=== PATIENT | female | born 1970 | race African-American/Black ===

== ENCOUNTER 2016-10-30 00:18 | Emergency (ER) | payer BC ==
[2016-10-30] MEDS ORDERED: OXYCODONE-ACETAMINOPHEN 5-325 MG TABLET PO ONE (03:16)
--- NOTE | 2016-10-30 03:51 | ER Document Report ---
HPI - HPI Patient complains to provider of: left shoulder pain Pain Level: 5 Context: Patient is a 46-year-old female comes emergency department for chief complaint of left shoulder and arm pain. 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 She states now she can barely lift her shoulder without severe sharp pain. She denies numbness, she denies neck pain, she denies chest pain, she denies any other symptoms. She takes no daily medications. She denies any medical history. Past Medical History - General Information source: Patient - Social History Smoking Status: Never Smoker Frequency of alcohol use: None Drug Abuse: None Lives with: Family Family History: Reviewed & Not Pertinent - Medical History Medical History: Negative Renal/ Medical History: Denies: Hx Peritoneal Dialysis Surgical Hx: Negative - Immunizations Immunizations up to date: Yes Hx Diphtheria, Pertussis, Tetanus Vaccination: Yes Vertical Provider Document - CONSTITUTIONAL General Appearance: WD/WN, Mild Distress - patient appears uncomfortable, she has noteable pain with movement of the left arm - INFECTION CONTROL TRAVEL OUTSIDE OF THE [place] IN LAST 30 DAYS: No - HEENT HEENT: Atraumatic, Normocephalic - NECK Neck: Normal Inspection - RESPIRATORY Respiratory: Breath Sounds Normal, No Respiratory Distress O2 Sat by Pulse Oximetry: 98 - CARDIOVASCULAR Cardiovascular: Regular Rate, Regular Rhythm - GI/ABDOMEN Gastrointestinal: Abdomen Soft, Abdomen Non-Tender - BACK Back: Normal Inspection - MUSCULOSKELETAL/EXTREMETIES Musculoskeletal/Extremeties: Tender - Patient with tenderness over the posterior left shoulder, over the humeral head, over the AC joint, area is not hot or erythematous, patient has almost no ability to perform abduction of the arm, she has good commission clerk, normal distal pulses and sensation, normal exam otherwise Course - Re-evaluation Re-evalutation: X-ray unremarkable. Exam is consistent with injury and strain of the left shoulder with probable rotator cuff injury and impingement from her nursing occupation. Patient given swelling, pain medication, anti-inflammatory already being taken at home. Patient given orthopedic referral instructions, to return precautions, patient states understanding and agreement. Patient much more comfortable on discharge. - Vital Signs Vital signs: Temp Pulse Resp BP Pulse Ox 97.4 F 81 18 141/75 H 98 10/30/16 00:36 10/30/16 00:36 10/30/16 00:36 10/30/16 00:36 10/30/16 00:36 - Diagnostic Test Radiology reviewed: Image reviewed, Reports reviewed Procedures - Immobilization left arm Pre-Proc Neuro Vasc Exam: Normal Immobilizer type: Sling Performed by: PCT Post-Proc Neuro Vasc Exam: Normal Alignment checked and good: Yes Discharge - Discharge Clinical Impression: Left shoulder pain Qualifiers: Chronicity: acute Qualified Code(s): M25.512 - Pain in left shoulder Condition: Stable Disposition: HOME, SELF-CARE Additional Instructions: The shoulder x-ray is normal, however this is a limited study. Use the sling, take arm out regularly to perform range of motions as we discussed. Apply heat to back of neck and upper back, apply ice directly over the shoulder area in the upper arm, take your naproxen (i.e. 375-500 mg twice daily with food), take the pain medication with the nausea medication if needed , follow up closely with Orthopedics for additional workup and management. Return to the ED for any concerning or worsening symptoms. Prescriptions: Ondansetron [Zofran Odt 4 mg Tablet] 1 - 2 tab PO Q4H PRN #20 tab.rapdis PRN Reason: For Nausea/Vomiting Oxycodone HCl/Acetaminophen [Percocet 5-325 mg Tablet] 1 - 2 tab PO Q4H PRN #15 tablet PRN Reason: Forms: Return to Work
--- NOTE | 2016-10-30 04:34 | RADIOLOGY REPORT (SQ) ---
EXAM DESCRIPTION: SHOULDER LEFT 2 OR MORE VIEWS COMPLETED DATE/TIME: 10/30/2016 4:15 am REASON FOR STUDY: sharp shoulder pain, decreased ROM COMPARISON: None. NUMBER OF VIEWS: Three views. TECHNIQUE: Internal rotation, external rotation, and Y view images acquired of the left shoulder. LIMITATIONS: None. FINDINGS: MINERALIZATION: Normal. BONES: No acute fracture or dislocation. No worrisome bone lesions. 0.2 cm ossicular fragmentation at the lateral aspect of the left acromion. Focal nonspecific lucency of the lateral left humeral he ad, likely benign. JOINTS: No dislocation. VISUALIZED LUNGS AND RIBS: No pneumothorax. No rib fracture. SOFT TISSUES: No radiopaque foreign body. OTHER: No other significant finding. IMPRESSION: NO RADIOGRAPHIC EVIDENCE OF ACUTE INJURY. TECHNICAL DOCUMENTATION: JOB ID: [id number] [employer]- All Rights Reserved
[2016-10-30] MEDS ORDERED: ONDANSETRON 4 MG TAB.RAPDIS PO ONE (04:51)
[2016-10-30 05:51] VITALS: BP 134/71
== END 2016-10-30 05:49 | disposition home or self-care (01) ==
LOC: ER 00:18
DX: M25.512 Pain in left shoulder (principal); M79.602 Pain in left arm
CPT/HCPCS: 99283; 73030; S0119